=== PATIENT | male | born 1990 | race Hispanic/Latino ===

== ENCOUNTER 2017-08-22 16:22 | Emergency (ER) | payer BC, OTHER ==
[2017-08-22] MEDS ORDERED: BUPIVACAINE/PF 0.5% 30ML VIAL ONE (16:47)
== END 2017-08-22 17:25 | disposition home or self-care (01) ==
LOC: EDH 16:22
DX: K02.9 Dental caries, unspecified (principal)
CPT/HCPCS: 99283; J3490